=== PATIENT | male | born 1965 | race Caucasian/White ===

== ENCOUNTER 2017-06-28 23:53 | Emergency (ER) | payer MEDICAID, OTHER ==
[~2017-06-28] VITALS: Ht 182.9 cm; Wt 104.3 kg
[~2017-06-28 23:53] MED LIST: HYDR50TA3 PO; LISI30TA4 PO; METO-357 PO; TRAM-351 PO
[2017-06-29] MEDS ORDERED: METO-358 PO (00:23)
[2017-06-29] MEDS ORDERED: CLON0.1T PO (00:24)
[2017-06-29] MEDS ORDERED: TEMA30CA PO (00:24)
--- NOTE | 2017-06-29 00:30 | NUR ---
Patient refused heart monitor
[2017-06-29 00:35] LABS: BASOPHILS # (AUTO) 0.1 K/uL (0.0-8.0); BASOPHILS % (AUTO) 1.2 % (0.0-2.0); EOSINOPHILS # (AUTO) 0.3 K/uL (0.0-0.7); HEMATOCRIT 43.8 % (36.7-47.1); HEMOGLOBIN 15.5 g/dL (12.5-16.3); LYMPHOCYTES % (AUTO) 39.5 % (20.5-51.5); MEAN CORPUSCULAR HEMOGLOBIN 35.6 uug (23.8-33.4); MEAN CORPUSCULAR HGB CONC 35 g/dL (32.5-36.3); MEAN CORPUSCULAR VOLUME 100.7 fL (73.0-96.2); MONOCYTES % (AUTO) 9.8 % (0.0-11.0); NEUTROPHILS # (AUTO) 4.7 K/uL (1.8-8.9); NEUTROPHILS % (AUTO) 46.5 % (38.5-71.5); PLATELET COUNT (AUTO) 217 K/uL (152-348); RED BLOOD CELL COUNT(AUTO) 4.36 MIL/uL (4.06-5.63)
[2017-06-29 00:52] LABS: ETHANOL 134 MG/DL (0-0)
[2017-06-29 00:55] LABS: THYROID STIMULATING HORMONE 1.903 mIU/mL (0.358-3.740)
[2017-06-29 01:00] LABS: CARBON DIOXIDE 28 mmol/L (21-32); CHLORIDE 98 mmol/L (98-107); CREATININE 1.2 mg/dL (0.6-1.3); GLUCOSE 96 mg/dL (74-106); POTASSIUM 3.3 mmol/L (3.5-5.1); UREA NITROGEN, BLOOD 14 mg/dL (7-18)
--- NOTE | 2017-06-29 01:00 | NUR ---
Patient removed hep lock. Catheter intact. Placed 4x4 dressing on site
[2017-06-29 01:01] LABS: *BILIRUBIN,URIN NEGATIVE (NEGATIVE); *BLOOD, URINE NEGATIVE (NEGATIVE); *CLARITY,URINE CLEAR (CLEAR); *COLOR,URINE STRAW (YELLOW); *KETONES,URINE NEGATIVE (NEGATIVE); *PROTEIN,URINE NEGATIVE (NEGATIVE); *UROBILINOGEN,URINE 0.2 E.U./dl (NORMAL); LEUKOCYTE ESTERASE ,URINE NEGATIVE (NEGATIVE); NITRITE, URINE NEGATIVE (NEGATIVE); UGLUCOSE NEGATIVE (NEGATIVE)
[2017-06-29 01:02] LABS: *AMPHETAMINE, URINE NEGATIVE (NEGATIVE); *BARBITURATE, URINE NEGATIVE (NEGATIVE); *CANNABINOID, URINE NEGATIVE (NEGATIVE); *COCCAINE, URINE NEGATIVE (NEGATIVE); *OPIATE, URINE NEGATIVE (NEGATIVE); *PHENCYCLIDINE SCREEN,URINE NEGATIVE (NEGATIVE)
[2017-06-29 01:04] LABS: ALANINE AMINOTRANSFERASE 24 U/L (16-63); ALKALINE PHOSPHATASE 51 U/L (50-136); ASPARTATE AMINOTRANSFERASE 20 U/L (15-37); BILIRUBIN,DIRECT 0.1 mg/dL (0.0-0.2); BILIRUBIN,TOTAL 0.3 mg/dL (0.2-1.0); TOTAL PROTEIN, SERUM 7.5 g/dL (6.4-8.2)
[2017-06-29 01:06] LABS: ACETAMINOPHEN < 2.0 ug/mL (10-30)
--- NOTE | 2017-06-29 01:06 | NUR ---
Mukesh Perez form PET Team here to eval patient
[2017-06-29 01:14] LABS: BACTERIA,URINE NONE SEEN /HPF (NONE SEEN); RBC,URINE NONE SEEN /HPF (0-3); SQUAMOUS EPITHELIAL CELL,UR FEW /HPF (NONE SEEN); WBC,URINE 0-3 /HPF (0-3)
[2017-06-29] MEDS ORDERED: POTASSIUM CHLORIDE 10 MEQ CAPSULE.SA PO ONE (02:00)
[2017-06-29] MEDS ORDERED: POTASSIUM CHLORIDE 10 MEQ CAPSULE.SA ONE (02:07)
--- NOTE | 2017-06-29 02:18 | NUR ---
Per Art Capilla from Pet Team patient does not meet 5150 criteria
--- NOTE | 2017-06-29 02:20 | NUR ---
Informed patient Dr Chau would line to monitor patient for bradycardia and BP for about 2hrs more patient refused to stay to be monitor
--- NOTE | 2017-06-29 02:34 | NUR ---
Patient does not wish to proceed with medical care recommended by ([facility] ). Patient given information related to possible complications, up to and including , which could occur as a result of leaving the hospital at this time. Patient verbalizes understanding of risks involved due to leaving against medical advice. Patient has signed AMA form.
[2017-06-30] MEDS ORDERED: CEFEPIME HCL 1 G VIAL ONE (21:47)
== END 2017-06-29 02:35 | disposition left against medical advice (07) ==
LOC: ER 23:55
DX: R45.851 Suicidal ideations (principal); F10.10 Alcohol abuse, uncomplicated; E87.6 Hypokalemia; I10 Essential (primary) hypertension; F32.9 Major depressive disorder, single episode, unspecified; F41.9 Anxiety disorder, unspecified; F17.210 Nicotine dependence, cigarettes, uncomplicated; Z79.899 Other long term (current) drug therapy; Z79.891 Long term (current) use of opiate analgesic
CPT/HCPCS: 36415; 80048; 80076; 80307; 81001; 82962; 84443; 85025; 93005; 99285; A4663; G0480 ×2; G0481; J0692